=== PATIENT | female | born 1950 | race Caucasian/White ===

== ENCOUNTER 2018-04-16 09:34 | Inpatient (IN) | payer BC ==
[2018-04-16 10:37] LABS: ADD MAN DIFF? NO
[2018-04-16 10:40] LABS: BASOPHILS % 0.3 % (0.0-2.0); EOSINOPHILS # 0.2 10^3/ul (0.0-0.5); EOSINOPHILS % 2.2 % (0.0-7.0); HEMATOCRIT 39.9 % (37.0-47.0); HEMOGLOBIN 13.2 g/dl (12.0-16.0); LYMPHOCYTES # 1.4 10^3/ul (0.8-2.9); LYMPHOCYTES % 16.7 % (15.0-51.0); MEAN CORPUSCULAR HEMOGLOBIN 30.3 pg (29.0-33.0); MEAN CORPUSCULAR HGB CONC 33.1 g/dl (32.0-37.0); MEAN CORPUSCULAR VOLUME 91.5 fl (82.0-101.0); MEAN PLATELET VOLUME 10.4 fl (7.4-10.4); MONOCYTE # 0.6 10^3/ul (0.3-0.9); MONOCYTES % 6.6 % (0.0-11.0); NEUTROPHIL # 6.4 10^3/ul (1.6-7.5); NEUTROPHILS % 73.9 % (39.0-77.0); PLATELET COUNT 273 10^3/UL (140-415); RED BLOOD COUNT 4.36 10^6/ul (4.20-5.40)
[2018-04-16 10:40] LABS: WHITE BLOOD COUNT 8.6 10^3/ul (4.8-10.8)
[2018-04-16] MEDS: SOD CHLORIDE 0.9% 1,000 ML IV (10:42)
[2018-04-16 10:45] LABS: ADD UMIC YES; UR ASCORBIC ACID NEGATIVE (NEGATIVE); UR BACTERIA FEW /HPF (NONE SEEN); UR BILIRUBIN (Dip) NEGATIVE (NEGATIVE); UR BLOOD (Dip) 1+ mg/dL (NEGATIVE); UR CLARITY SLIGHTLY CLOUDY (CLEAR); UR COLOR YELLOW (YELLOW); UR GLUCOSE (Dip) NEGATIVE (NEGATIVE); UR KETONES (Dip) NEGATIVE (NEGATIVE); UR LEUKOCYTE ESTERASE (Dip) NEGATIVE Leu/ul (NEGATIVE); UR MUCUS MODERATE /HPF (NONE SEEN); UR NITRITE (Dip) NEGATIVE (NEGATIVE); UR RBC 1 /HPF (0-5); UR SPECIFIC GRAVITY (Dip) 1.021 (1.003-1.030); UR TOTAL PROTEIN (Dip) NEGATIVE (NEGATIVE); UR UROBILINOGEN (Dip) NEGATIVE (NEGATIVE); UR WBC 1 /HPF (0-5)
[2018-04-16] MEDS: LIDOCAINE/MYLANTA 40 ML BTL PO (10:57)
[2018-04-16] MEDS: BELLADONNA/PHENOBARBITAL TAB PO (10:58)
[2018-04-16] MEDS: KETOROLAC 15 MG INJ IV (10:58)
[2018-04-16] MEDS: ONDANSETRON 4 MG INJ IV (10:58)
[2018-04-16 11:05] LABS: ALANINE AMINOTRANSFERASE 24 IU/L (13-69); ALBUMIN 4.1 g/dl (3.3-4.9); ALBUMIN/GLOBULIN RATIO 1.24; ALKALINE PHOSPHATASE 73 IU/L (42-121); ANION GAP 7 (5-13); ASPARTATE AMINO TRANSFERASE 31 IU/L (15-46); BILIRUBIN,INDIRECT 0.8 mg/dl (0-1.1); BILIRUBIN,TOTAL 0.8 mg/dl (0.2-1.3); BLOOD UREA NITROGEN 21 mg/dl (7-20); CARBON DIOXIDE 33 mmol/L (21-31); CHLORIDE 99 mmol/L (97-110); CREATININE 0.63 mg/dl (0.44-1.00); Estimated GFR > 60 mL/min (>60); GLUCOSE 103 mg/dl (70-220); LIPASE 374 U/L (23-300); SODIUM 139 mmol/L (135-144); TOTAL PROTEIN 7.4 g/dl (6.1-8.1)
[2018-04-16 11:08] LABS: POTASSIUM 2.9 mmol/L (3.5-5.1)
[2018-04-16] MEDS ORDERED: SOD CHLORIDE 0.9% 1,000 ML IV (11:46)
[2018-04-16] MEDS ORDERED: ASPIRIN 325 MG TAB PO (11:46)
[2018-04-16] MEDS ORDERED: ENALAPRILAT 1.25 MG INJ IV (12:00)
[2018-04-16] MEDS: MAGNESIUM SULFATE 1 GM/D5W 100 ML IVPB (12:00)
[2018-04-16] MEDS: POTASSIUM CHLORIDE (SR) 20 MEQ TAB PO (12:01)
[2018-04-16] MEDS: DEXTROSE 5%-0.45% NACL 1,000 ML IV ×2 (12:50→17:37)
[2018-04-16] MEDS ORDERED: ZOLPIDEM 5 MG TAB PO (13:00)
[2018-04-16] MEDS ORDERED: ONDANSETRON 4 MG INJ IV (13:00)
[2018-04-16] MEDS: POTASSIUM CHLORIDE 100 ML IVPB (13:14)
[2018-04-16] MEDS: FAMOTIDINE 20 MG INJ IV ×2 (14:02→20:17)
[2018-04-16] MEDS: DOCUSATE SODIUM 100 MG CAP PO (14:02)
[2018-04-16] MEDS: ACETAMINOPHEN 325 MG TAB PO (17:18)
[2018-04-16] MEDS: ATORVASTATIN 10 MG TAB PO (20:16)
[2018-04-17] MEDS: DOCUSATE SODIUM 100 MG CAP PO ×2 (03:16→13:43)
[2018-04-17] MEDS: PANTOPRAZOLE (EC) 40 MG TAB PO (05:46)
[2018-04-17 07:22] LABS: ADD MAN DIFF? NO
[2018-04-17 07:27] LABS: BASOPHILS % 0.5 % (0.0-2.0); EOSINOPHILS # 0.1 10^3/ul (0.0-0.5); EOSINOPHILS % 3.5 % (0.0-7.0); HEMATOCRIT 35.6 % (37.0-47.0); HEMOGLOBIN 11.8 g/dl (12.0-16.0); LYMPHOCYTES # 1.4 10^3/ul (0.8-2.9); LYMPHOCYTES % 33.4 % (15.0-51.0); MEAN CORPUSCULAR HEMOGLOBIN 30.6 pg (29.0-33.0); MEAN CORPUSCULAR HGB CONC 33.1 g/dl (32.0-37.0); MEAN CORPUSCULAR VOLUME 92.5 fl (82.0-101.0); MEAN PLATELET VOLUME 10.2 fl (7.4-10.4); MONOCYTE # 0.4 10^3/ul (0.3-0.9); MONOCYTES % 9.7 % (0.0-11.0); NEUTROPHIL # 2.1 10^3/ul (1.6-7.5); NEUTROPHILS % 52.7 % (39.0-77.0); PLATELET COUNT 253 10^3/UL (140-415); RED BLOOD COUNT 3.85 10^6/ul (4.20-5.40)
[2018-04-17 07:49] LABS: ALBUMIN/GLOBULIN RATIO 1.52; CHOL/HDL RATIO 4.4 RATIO; Estimated GFR > 60 mL/min (>60); LDL CHOLESTEROL,CALCULATED 131 mg/dl
[2018-04-17 07:50] LABS: ALANINE AMINOTRANSFERASE 19 IU/L (13-69); ALBUMIN 3.5 g/dl (3.3-4.9); ALKALINE PHOSPHATASE 56 IU/L (42-121); ASPARTATE AMINO TRANSFERASE 26 IU/L (15-46); BILIRUBIN,INDIRECT 0.7 mg/dl (0-1.1); BILIRUBIN,TOTAL 0.7 mg/dl (0.2-1.3); BLOOD UREA NITROGEN 12 mg/dl (7-20); CALCIUM 8.6 mg/dl (8.4-10.2); CARBON DIOXIDE 33 mmol/L (21-31); CHLORIDE 99 mmol/L (97-110); CHOLESTEROL 208 mg/dl (100-200); CREATININE 0.65 mg/dl (0.44-1.00); GLUCOSE 117 mg/dl (70-220); HDL CHOLESTEROL 47 mg/dl (35-98); PHOSPHORUS 3.5 mg/dl (2.5-4.9); POTASSIUM 3.5 mmol/L (3.5-5.1); TOTAL PROTEIN 5.8 g/dl (6.1-8.1); TRIGLYCERIDES 152 mg/dl (0-149)
[2018-04-17 07:52] LABS: ANION GAP 6 (5-13); SODIUM 138 mmol/L (135-144)
[2018-04-17 08:03] LABS: HEMOGLOBIN A1C 5.6 % (0-5.9)
[2018-04-17] MEDS: LOSARTAN 50 MG TAB PO (09:01)
[2018-04-17] MEDS: HYDROCHLOROTHIAZIDE 25 MG TAB PO (09:01)
[2018-04-17] MEDS: POTASSIUM CHLORIDE (SR) 20 MEQ TAB PO (11:56)
[2018-04-17 11:59] LABS: LIPASE 66 U/L (23-300)
== END 2018-04-17 15:57 | disposition home or self-care (01) | DRG 392 ==
LOC: E/R 09:34 → TEL 12:03
DX: R10.9 Unspecified abdominal pain (principal); E87.6 Hypokalemia; K29.50 Unspecified chronic gastritis without bleeding; R19.7 Diarrhea, unspecified; I10 Essential (primary) hypertension; E78.5 Hyperlipidemia, unspecified; Z79.1 Long term (current) use of non-steroidal anti-inflammatories (NSAID); M25.50 Pain in unspecified joint; R11.10 Vomiting, unspecified
CPT/HCPCS: 36415; 74176; 80053; 80061; 81001; 83036; 83690; 83735; 84100; 85025; 87086; 96374; 96375; 99285-25